=== PATIENT | male | born 1970 | race Two or more races ===

== ENCOUNTER 2024-07-01 02:51 | Day surgery (SDC) | payer BC, SELFPAY ==
[2024-07-01 02:52] VITALS: BMI 28.1
[2024-07-01 03:38] VITALS: BP 133/94; PULSE 101; RESP 19; TEMP 39; O2SAT 97
--- NOTE | 2024-07-01 03:55 | EDRME_ITS ---
Rapid Medical Screening Exam [facility] Arrival date/time: 07/01/24 02:51 Chief Complaint: Abdominal Pain Vital signs: Vital Signs Temperature 102.2 F H 07/01/24 03:38 Pulse Rate 101 H 07/01/24 03:38 Respiratory Rate 19 07/01/24 03:38 Blood Pressure 133/94 H 07/01/24 03:38 Pulse Oximetry (%) 97 07/01/24 03:38 Oxygen Delivery Method Room Air 07/01/24 03:38 [facility] Narrative: RLQ pain, n/v x1 since yesterday. No urinary symptoms reported.
--- NOTE | 2024-07-01 03:57 | XR_ITS ---
Examination: CT abdomen with intravenous contrast CT pelvis with intravenous contrast 2-D coronal reconstructions 2-D sagittal reconstructions Date and time of exam:July 01, 2024 0747 hours INDICATIONS: Right lower abdominal pain and fever beginning 2 days ago. CTDI: vol (mGy) 8.57 DLP: (mGycm) 508 Technique: Multiple axial sections of the abdomen and pelvis have been obtained. 64 slice high-resolution scanner used. 3 mm axial sections have been obtained, post intravenous injection 60 cc Isovue 370 2-D sagittal, coronal reconstructions obtained. Low dose protocols were performed. One or more of the following dose reduction techniques were used; automated exposure control, adjustment of the mA and/or KV according to patient size, use of iterative reconstruction technique. Findings: No liver or splenic lesion No gallstones No pancreatic or adrenal mass No renal or ureteral calculi Inflamed appendix, retrocecal, with appendicolith, axial images 116 through 151 No pelvic abscess Urinary bladder intact IMPRESSION: Acute appendicitis, no pelvic abscess
--- NOTE | 2024-07-01 04:02 | PC.NURSE ---
NO SEPSIS ALERT AT THIS TIME PER PROVIDER SETH
[2024-07-01 04:18] LABS: Collection Type, Urine Clean Catch; Squamous Epithelial Cell,Urine 0 /hpf (0-5)
[2024-07-01 04:36] LABS: Bacteria,Urine Rare; Bilirubin,Urine Negative (Negative); Blood,Urine 2+ (Negative); Clarity,Urine Turbid (Clear/Hazy); Color,Urine Yellow (Lt Yel-Yel); Glucose, Urine Trace (Negative); Ketones,Urine Negative (Negative); Leukocyte Esterase,Urine Negative (Negative); Nitrite,Urine Negative (Negative); Protein,Urine 1+ (Neg - Trace); RBC,Urine 122 /hpf (0-3); Specific Gravity,Urine 1.036 (1.001-1.035); Urobilinogen,Urine Negative mg/dL (0.0-1.0); WBC,Urine 5 /hpf (0-5)
[2024-07-01 04:37] LABS: Lactate (Lactic Acid) 1.6 mMol/L (0.4-2.0)
[2024-07-01 04:38] LABS: Basophils % (Auto) 0 % (0-2.5); Eosinophils % (Auto) 0 % (0-10); Hematocrit 42.4 % (41.0-53.0); Hemoglobin 14.8 g/dL (13.5-16.0); Immature Granulocytes % (Auto) 0 % (0-0); Immature Granulocytes Auto 0.07 Thou/mm3 (0.00-0.00); Lymphocytes # (Auto) 0.7 Thou/mm3 (1.0-4.8); Lymphocytes % (Auto) 3 % (10-50); Mean Corpuscular HGB Conc 34.9 g/dl (31.0-37.0); Mean Corpuscular Hemoglobin 29.7 pg (25.0-35.0); Mean Corpuscular Volume 85 fL (80-100); Monocytes # (Auto) 0.9 Thou/mm3 (0.0-0.8); Monocytes % (Auto) 4 % (0-12); Neutrophils # (Auto) 20.2 Thou/mm3 (1.8-7.7); Neutrophils % (Auto) 92 % (37-80); Nucleated Red Blood Cell % 0 /100 WBC (0); Platelet Count 267 Thou/mm3 (140-440); RDW Standard Deviation 40.6 fL (35.1-43.9); Red Blood Count 4.99 Miln/mm3 (4.50-5.90)
--- NOTE | 2024-07-01 04:40 | XR_ITS ---
Examination: AP chest single view TECHNIQUE: Portable sitting AP chest single view Date and time: July 01, 2024 0448 hours INDICATIONS: Sepsis alert FINDINGS: Normal heart size Lungs are clear. Osseous structures are intact IMPRESSION: No active disease
--- NOTE | 2024-07-01 04:40 | EKG_ITS ---
[facility] Test Date: 2024-07-01 Pat Name: ZOE BACA Department: Room: - Gender: Male [employer]: : [id number] Requested By: Piter Cardenas Order Number: [id number] Reading MD: Piter Cardenas Measurements Intervals [place] Rate: 87 P: 30 GA: 128 QRS: 7 QRSD: 105 T: 22 QT: 382 QTc: 461 Interpretive Statements SINUS RHYTHM INCOMPLETE RIGHT BUNDLE BRANCH BLOCK [90+ ms QRS DURATION, TERMINAL R IN V1/V2, 40+ ms S IN I/aVL/V4/V5/V6] No previous ECG available for comparison /store/S0/[id number].pdf
[2024-07-01] MEDS: PIPER/TAZO 3.375 GM PREMIX 3.375 GM/50 ML BAG IV (05:18)
[2024-07-01 05:19] VITALS: TEMP 39.3
[2024-07-01] MEDS: ACETAMINOPHEN 500 MG TABLET 1000 MG PO (05:19)
[2024-07-01] MEDS: SODIUM CHLORIDE 0.9% 1000 ML 1,000 ML 999 ML IV (05:19)
[2024-07-01 05:20] VITALS: BP 134/84; PULSE 101; RESP 19; TEMP 39.3; O2SAT 95
[2024-07-01] MEDS: DOXYCYCLINE INJ 100 MG in SODIUM CHLORIDE 0.9% (POP) 100 ML IV (05:43)
[2024-07-01 05:46] LABS: INR 1.1 (0.9-1.3); Partial Thromboplastin Time 21.8 Seconds (22.0-36.0); Prothrombin Time 12.4 Seconds (9.0-12.2)
[2024-07-01 05:55] LABS: Alanine Aminotransferase 33 U/L (10-49); Albumin, Serum 4.7 gm/dL (3.5-5.0); Albumin/Globulin Ratio 1.5 (1.2-2.2); Alkaline Phosphatase 69 U/L (46-116); Anion Gap 11 (7-16); Aspartate Amino Transferase 18 U/L (0-34); BUN/Creatinine Ratio 18 Ratio (12-20); Bilirubin,Total 0.6 mg/dL (0.3-1.2); Blood Urea Nitrogen 18 mg/dL (9-23); Calcium 8.7 mg/dL (8.3-10.6); Calcium (Corrected) 8.7 mg/dL (8.5-10.1); Carbon Dioxide 25.3 mMol/L (20.0-31.0); Chloride 104 mMol/L (98-107); Globulin 3.1 gm/dL (2.3-3.5); Glucose 137 mg/dL (74-106); Lipase 35 U/L (12-53); Osmolality,Calculated 283 (275-295); Potassium 3.1 mMol/L (3.4-5.1); Procalcitonin 36.45 ng/ml (0.0-0.49); Sodium 140 mMol/L (136-145); Total Protein 7.8 gm/dL (5.7-8.2); Troponin I < 0.020 ng/mL (0.0-0.045); eGFR > 60 See Note
[2024-07-01 06:20] VITALS: BP 117/78; PULSE 85; RESP 19; TEMP 37.6; O2SAT 96
--- NOTE | 2024-07-01 06:30 | PD.EDABDPN ---
ED Abdominal Pain RME/HPI General Chief Complaint: Abdominal Pain Stated complaint: ABD PAIN Time seen by provider: 07/01/24 06:29 Arrival date/time: 07/01/24 02:51 Source: patient Mode of arrival: ambulatory Limitations: no limitations RME / HPI RME / HPI narrative: RLQ pain, n/v x1 since yesterday. No urinary symptoms reported. TOAN HPI: 51-year-old male otherwise healthy, no past surgical history, presents to the emergency department with approximately 12 hours of right lower quadrant pain. Pain is constant has not migrated. He notes associated fevers and anorexia. He denies dysuria, polyuria, or hematuria. Related Data Allergies Allergy/AdvReac Type Severity Reaction Status Date / Time No Known Allergies Allergy Verified 07/01/24 02:52 Review of Systems Review of Systems Systems Reviewed: All systems reviewed, normal except as documented ED Exam Narrative Physical exam: GENERAL APPEARANCE: AxOx4, generally well-appearing, no acute distress. HEENT: NC, AT. MMM. No pallor, sclera is anicteric. HEART: Normal rate and regular rhythm, normal S1/S1, no m/r/g LUNGS: CTAB, moving air well. No crackles or wheezes are heard. ABDOMEN: Soft, moderate McBurney's point tenderness, positive Rovsing sign, no rebound, no guarding, nondistended with good bowel sounds heard. BACK: No CVAT, no obvious deformity. EXTREMITIES: Without cyanosis, clubbing or edema. NEUROLOGICAL: Grossly nonfocal. Alert and oriented, moving all 4 extremities. CN not formally tested but appear grossly intact. Observed to ambulate with normal gait. Skin: Warm and dry without any rash. General Limitations: Present no limitations Course Course Course Narrative: Patient made clinically stable and respiratory throughout my encounter. Patient is not septic. we reviewed all results, analysis, treatment plan patient is amenable to this/surgery Quality Measures none Orders Category Date Time Status Place in Surgical Day Care Routine Admission 07/01/24 08:26 Active Activity as Tolerated Routine Care 07/01/24 08:[address] Screening NOW Care 07/01/24 03:57 Active Square Shear Operator Q4H START 00 Care 07/01/24 04:40 Active Insert IV NOW Care 07/01/24 04:40 Active Strict Intake and Output Routine Care 07/01/24 04:[address] abdomen pelvis w con Stat Exams 07/01/24 03:57 Completed XR chest 1V SEPSIS PROTOCOL Stat Exams 07/01/24 04:40 Completed Blood Culture (Lab) Stat Lab 07/01/24 04:20 Received CBC Stat Lab 07/01/24 04:25 Completed CMP [Comprehensive Metabolic Panel] Stat Lab 07/01/24 04:25 Completed Lactate (Lactic Acid) Stat Lab 07/01/24 04:25 Completed Lipase Stat Lab 07/01/24 04:25 Completed Partial Thromboplastin Time Stat Lab 07/01/24 04:40 Completed Procalcitonin Stat Lab 07/01/24 04:25 Completed Prothrombin Time with INR Stat Lab 07/01/24 04:40 Completed Troponin I Stat Lab 07/01/24 04:25 Completed UA [Urinalysis] Stat Lab 07/01/24 01:11 Completed Urine Culture Stat Lab 07/01/24 01:11 Received Acetaminophen Tab [Tylenol ES Tab] Med 07/01/24 03:55 Discontinued 1,000 mg PO X1 ONE Acetaminophen Tab [Tylenol Tab] Med 07/01/24 08:26 Active 650 mg PO Q6H PRN Doxycycline Inj [Vibramycin Inj] 100 mg Med 07/01/24 04:42 Discontinued Sodium Chloride 0.9% (Pop) [NS 0.9% mini bag] 100 ml IV X1 Ketorolac Inj [Toradol Inj] Med 07/01/24 08:26 Active 15 mg IVP Q6H PRN Morphine Inj Med 07/01/24 08:26 Active 4 mg IVP Q4H PRN Morphine Inj Med 07/01/24 06:28 Discontinued 6 mg IVP X1 ONE Piper/Tazo 3.375 gm Premix [Zosyn] Med 07/01/24 04:42 Discontinued 3.375 gm in 50 ml IV X1 Potassium Chloride [K-Dur] Med 07/01/24 08:25 Discontinued 40 meq PO X1 ONE Sodium Chloride 0.9% 1000 ml [Ns] 1,000 ml Med 07/01/24 08:30 Active IV 125 mls/hr Sodium Chloride 0.9% 1000 ml [Ns] 1,000 ml Med 07/01/24 04:51 Discontinued IV 999 mls/hr Code Status Routine Oth 07/01/24 08:27 Ordered EKG (RT) Stat RT 07/01/24 04:40 Draft Vital Signs Vital signs: Vital Signs Temperature 102.2 F H 07/01/24 03:38 Pulse Rate 101 H 07/01/24 03:38 Respiratory Rate 19 07/01/24 03:38 Blood Pressure 133/94 H 07/01/24 03:38 Pulse Oximetry (%) 97 07/01/24 03:38 Oxygen Delivery Method Room Air 07/01/24 03:38 SpO2 97% on room air, not hypoxic Abdominal Pain MDM MDM Narrative MDM Narrative:: Mr. Cope presents to the emergency department with right lower quadrant tenderness and significant exam concerning for acute appendicitis. He presented with stable vital signs aside from a moderate fever. Laboratory testing and CT scan was ordered via the RME process. Laboratory testing was significant for a moderate leukocytosis of 22,000, and elevated procalcitonin at 40, and a normal lactic acid. Liver enzymes were also within normal limits, ultrasound of the right upper quadrant not indicated, CT scan was ordered to rule out acute appendicitis. CT scan of the abdomen shows acute appendictiis without perforation or abscess on my read. Case was discussed wtih Dr. Whitley for admission and possibly surgery. Patient data External records reviewed:: [facility] previous records Clinical information provided by:: patient Social determinants that could affect healthcare access:: none Patient has the following chronic illnesses:: none How is presenting disease/condition affected by chronic disease/condition?: no chronic disease Evaluation data The following diagnostics were reviewed and interpreted by me:: lab results and radiology exam(s) Lab and/or radiology exams considered but not ordered:: See narrative Interpretation Summary: See narrative Medications / Prescriptions Medications or Prescriptions considered but not ordered:: None Medication administrations:: Medication Administration History Acetaminophen (Acetaminophen 325 Mg Tablet) 650 mg PO Q6H PRN PRN Reason: PAIN SCALE 1-3 (mild Stop: 07/31/24 08:25 Sodium Chloride (Ns) 1,000 mls @ 125 mls/hr IV .Q8H JENN Stop: 07/31/24 08:29 Ketorolac Tromethamine (Ketorolac Inj 30 Mg/Ml Vial) 15 mg IVP Q6H PRN PRN Reason: PAIN SCALE 4-6 (Moderate Stop: 07/06/24 08:25 Morphine Sulfate (Morphine Sulf Inj 10 Mg/Ml Vial) 4 mg IVP Q4H PRN PRN Reason: PAIN SCALE 7-10 (Severe Discontinued Medications Acetaminophen (Acetaminophen 500 Mg Tablet) 1,000 mg PO X1 ONE Stop: 07/01/24 03:56 Last Admin: 07/01/24 05:19 Dose: 1,000 mg Documented By: CCT Piperacillin/Tazobactam/Dextrose (Zosyn) 3.375 gm in 50 mls @ 100 mls/hr IV X1 ONE Stop: 07/01/24 05:11 Last Infusion: 07/01/24 05:45 Dose: Infused Documented By: Admin: 07/01/24 05:18 Dose: 100 mls/hr Documented By: CCT Doxycycline Hyclate 100 mg/ (Sodium Chloride) 100 mls @ 100 mls/hr IV X1 ONE Stop: 07/01/24 05:41 Last Infusion: 07/01/24 06:43 Dose: Infused Documented By: Admin: 07/01/24 05:43 Dose: 100 mls/hr Documented By: CCT Sodium Chloride (Ns) 1,000 mls @ 999 mls/hr IV .Q1H1M ONE Stop: 07/01/24 05:51 Last Infusion: 07/01/24 06:29 Dose: Infused Documented By: Admin: 07/01/24 05:19 Dose: 999 mls/hr Documented By: CCT Morphine Sulfate (Morphine Sulf Inj 10 Mg/Ml Vial) 6 mg IVP X1 ONE Stop: 07/01/24 06:29 Last Admin: 07/01/24 06:34 Dose: 6 mg Documented By: CCT Potassium Chloride (Potassium Chloride 20 Meq Tabcr) 40 meq PO X1 ONE Stop: 07/01/24 08:26 Above Consultations Consultation(s) initiated? (list below): Yes Consultation #1 (Physician, Specialty, Details): Dr. Whitley, General surgery, case reviewed and agrees to admit for definitive management Time: 08:30 Diagnosis Differential diagnosis abdominal pain: abdominal pain, acute appendicitis and calculus of kidney Most likely diagnosis given after review of the tests above:: see below Admission Indicated Admission indicated?: indicated Admission Request Was there a request for admission?: Yes Admission Attestation Admission request attestation: Discussed case with [Dr. Whitley] from general surgery service regarding admission. Discussed patients ED course, exam findings, labs, and radiology results. The surgeon [agrees] to accept the patient for admission. Disposition Plan Disposition Plan: Admit Discharge Plan Plan Patient Disposition: Admit Acute Care w/in Hospital Problem List Clinical Impression: Acute appendicitis
[2024-07-01] MEDS: MORPHINE SULF INJ 10 MG/ML VIAL 6 MG IVP (06:34)
[2024-07-01 08:04] VITALS: BP 119/63; PULSE 72; PULSE 73; RESP 16; TEMP 36.9; O2SAT 95
--- NOTE | 2024-07-01 08:07 | PC.NURSE ---
Patient lying in gurney quietly, awaiting ct results, Report received from pm nurse, patient to er with c/o RLQ pain since yesterday. Patient states pain to RLQ 8/10 with some relief of pain after administration of pain medication, skin is warm dry and pink, call light within reach.
--- NOTE | 2024-07-11 08:58 | PD.SUROPNT ---
Date of Procedure 07/11/24 Pre Op Diagnosis Acute appendicitis Post Op Diagnosis Same Procedure Laparoscopic appendectomy Findings Acutely inflamed appendix Procedure Description After discussion of risks and benefits, patient was brought to the operating room, SCDs were placed and general anesthesia was induced. He received preoperative antibiotics and was prepped and draped in the usual sterile fashion. After timeout an infraumbilical incision was made with a #15 blade and the skin was elevated with towel clamps. A Veress needle was placed through the incision and proper positioning was confirmed with a drop test. The abdomen was insufflated to 15 mmHg at which point the Veress was exchanged for a 5 mm camera using a Visiport technique. There were no signs of injury from the point of entry. 2 additional ports were placed under direct vision, one 5 mm in the suprapubic region and one 5 mm in the left lower quadrant. The infraumbilical port was upsized to a 12 mm also under direct vision. Patient was placed in Trendelenburg with left side down. The appendix was easily identified by tracing the attending of the colon and a window was made between the base of the appendix and the mesoappendix using blunt dissection. The base of the appendix was stapled with a 45 mm blue load and the mesoappendix was transected with the harmonic scalpel. The area was gently irrigated and there were no signs of bleeding. The pelvis was also gently irrigated and there were no signs of pus. The specimen was removed in an Endo Catch bag via the infraumbilical port and the infraumbilical fascia was closed with a 0 Vicryl suture using a Leonides-Ann. Pneumoperitoneum was released and ports were removed under direct vision. Incisions were irrigated and infiltrated with half percent Marcaine for total of 30 cc. Incisions were closed with 4-0 Monocryl and reinforced with Dermabond. Patient was extubated and brought to PACU in stable condition Pathology / specimen Other (Appendix) Estimated Blood Loss 20 Surgeon Stephanie Whitley MD Surgical Staff Operation Date: 07/01/24 12:30 Case Staff TRAINING AND DEVELOPMENT PROJECT LEADER: Hitesh Tesfaye RNlicensed and certified midwife: Sharon Lemus
== END 2024-07-01 14:46 | disposition home or self-care (01) ==
LOC: SERX 06:29 → S2EX 08:39
PROVIDERS: Emergency Medicine; Physician Assistant; Emergency Provider Emergency Medicine; Referring Provider Surgery; Visit Provider Surgery
PROC: 0DTJ4ZZ Resection of Appendix, Percutaneous Endoscopic Approach (ICD-10-PCS; CPT 44970; principal; 2024-07-01 12:30)
DX: K35.30 Acute appendicitis with localized peritonitis, without perforation or gangrene (principal); Z01.810 Encounter for preprocedural cardiovascular examination
CPT/HCPCS: 44970; 36415; 71045; 74177; 80053; 81001; 83605; 83690; 84145; 84484; 85025; 85610; 85730; 87040; 87077; 87086; 87186; 93005; 96365; 96367; 96375; 99285; A4217; A4649; J0694; J1100; J1885; J2250; J2270; J2405; J2543; J2704; J3010; J3490; J7030; Q9967; A9270